=== PATIENT | female | born 1985 | race Caucasian/White ===

== ENCOUNTER 2017-03-20 08:04 | Emergency (ER) | payer SELFPAY ==
[~2017-03-20] VITALS: Ht 165.1 cm; Wt 108.0 kg
[2017-03-20] MEDS ORDERED: ACETAMINOPHEN 500MG TABLET PO STA (08:47)
[2017-03-20] MEDS ORDERED: TETANUS, DIPHTHERIA, PERTUSSIS VAC/PF 0.5ML (>7YR OLD) IM ONE (09:00)
[2017-03-20 09:23] LABS: BASOPHILS % 0.5 % (0.0-2.0); EOSINOPHILS % 0.9 % (0.0-5.0); HEMATOCRIT. 42.8 % (36.0-48.0); HEMOGLOBIN. 14.7 g/dL (12.0-16.0); LYMPHOCYTES % 11.5 % (20.0-50.0); MEAN CORPUSCULAR HEMOGLOBIN 28.6 pg (28.0-32.0); MEAN CORPUSCULAR VOLUME 83.4 fL (81.0-99.0); MEAN PLATELET VOLUME 9.9 fl (7.4-10.4); MONOCYTES % 5.4 % (2.0-8.0); NEUTROPHILS % 81.7 % (40.0-76.0); PLATELET 196 x1000/uL (130-400); RED BLOOD CELL COUNT 5.13 mill/uL (4.2-5.4); RED CELL DISTRIBUTION WIDTH 13.5 % (11.6-14.6)
[2017-03-20 09:27] LABS: CHLORIDE 108 mEq/L (98-107)
[2017-03-20 09:33] LABS: HCG SCREEN NEGATIVE
[2017-03-20 09:36] LABS: CARBON DIOXIDE 25 mEq/L (21-32)
[2017-03-20] MEDS ORDERED: IOHEXOL-300 100 ML BOTTLE ONE (11:43)
[2017-03-20] MEDS ORDERED: FENTANYL CITRATE/PF 50MCG/ML 2ML VIAL IV ONE (12:00)
[2017-03-20] MEDS ORDERED: ONDANSETRON HCL 4MG/2ML VIAL ONE (12:48)
[2017-03-20] MEDS ORDERED: ONDANSETRON HCL 4MG/2ML VIAL IV ONE (13:45)
[2017-03-20 15:31] VITALS: BP 138/75
== END 2017-03-20 16:34 | disposition home or self-care (01) ==
LOC: ER 08:30
DX: S52.592A Other fractures of lower end of left radius, initial encounter for closed fracture (principal); M54.5 Low back pain; M54.2 Cervicalgia; R10.30 Lower abdominal pain, unspecified; M25.552 Pain in left hip; M25.562 Pain in left knee; M25.531 Pain in right wrist; M25.571 Pain in right ankle and joints of right foot; R00.0 Tachycardia, unspecified; V43.52XA Car driver injured in collision with other type car in traffic accident, initial encounter; Y93.89 Activity, other specified; Y92.89 Other specified places as the place of occurrence of the external cause; Y99.8 Other external cause status
CPT/HCPCS: 29125; 36415; 70450; 71010; 72125; 73110; 73552; 73560; 73590; 74177; 80053; 83690; 84703; 85025; 86850; 86900; 86901; 90471; 90715; 96374; 96375; 99285; J2405; J3010; Q9967; Z7610; A4565